=== PATIENT | female | born 1955 | race Caucasian/White ===

== ENCOUNTER → 2017-08-22 | Outpatient (CLI) | payer OTHER | END | disposition home or self-care (01) | LOC: LAB SHORT 15:57 → LAB EV 15:57 | DX: N76.4 Abscess of vulva (principal) | CPT/HCPCS: 87070; 87075; 87077; 87147; 87186; 87205 ==

== ENCOUNTER → 2018-04-08 | Outpatient (CLI) | payer OTHER ==
[2018-04-10 15:08] LABS: HPV 16 Negative (Negative); HPV 18 Negative (Negative); HPV OTHER HR TYPES Negative (Negative)
== END | disposition home or self-care (01) ==
LOC: LAB SHORT 11:44 → LAB 11:44
PROVIDERS: Obstetrics & Gynecology
DX: Z01.419 Encounter for gynecological examination (general) (routine) without abnormal findings (principal)
CPT/HCPCS: 87624; 87625; G0123

== ENCOUNTER → 2018-05-04 | Outpatient (CLI) | payer OTHER | END | disposition home or self-care (01) | LOC: LAB EV 17:23 → LAB SHORT 17:23 | DX: J06.9 Acute upper respiratory infection, unspecified (principal) | CPT/HCPCS: 87807 ==

== ENCOUNTER → 2019-03-08 | Outpatient (CLI) | payer OTHER | END | disposition home or self-care (01) | LOC: LAB SHORT 12:27 → PLD 12:27 | DX: L90.5 Scar conditions and fibrosis of skin (principal); M79.89 Other specified soft tissue disorders | CPT/HCPCS: 88305 ==

== ENCOUNTER → 2019-04-28 | Outpatient (CLI) | payer OTHER | END | disposition home or self-care (01) | LOC: PLD 08:23 → LAB SHORT 08:23 | DX: N95.0 Postmenopausal bleeding (principal) | CPT/HCPCS: 88305 ==

== ENCOUNTER → 2019-05-06 | Outpatient (CLI) | payer OTHER ==
[2019-05-10 14:06] LABS: HPV 16 Negative (Negative); HPV 18 Negative (Negative); HPV OTHER HR TYPES Negative (Negative)
== END | disposition home or self-care (01) ==
LOC: LAB 10:40 → LAB SHORT 10:40
PROVIDERS: Obstetrics & Gynecology
DX: Z01.419 Encounter for gynecological examination (general) (routine) without abnormal findings (principal)
CPT/HCPCS: 87624; G0123

== ENCOUNTER 2020-09-29 09:59 | Day surgery (SDC) | payer MEDICARE ==
[~2020-09-29] VITALS: Ht 172.7 cm; Wt 84.1 kg
[~2020-09-29 09:59] MED LIST: ALBU90OI INH; ALLEGRA ALLERGY60 MG PO; AZELASTINE137 MCG/01; Budeprion Xl300 MG PO; DIAZ10 PO; FLUT1DIS5 INH; Flonase 0.05% N16 GM; LAMO25 PO; SPIR25 PO; THYROID120 MG PO; THYROID60 MG PO
== END 2020-09-29 11:59 | disposition home or self-care (01) ==
LOC: ORSCSDS 09:59
PROVIDERS: Internal Medicine Gastroenterology
PROC: 0DBB8ZX Excision of Ileum, Via Natural or Artificial Opening Endoscopic, Diagnostic (ICD-10-PCS; principal; 2020-09-29 11:15)
PROC: 0DB98ZX Excision of Duodenum, Via Natural or Artificial Opening Endoscopic, Diagnostic (ICD-10-PCS; principal; 2020-09-29 11:15)
PROC: 0DB68ZX Excision of Stomach, Via Natural or Artificial Opening Endoscopic, Diagnostic (ICD-10-PCS; principal; 2020-09-29 11:15)
DX: R11.2 Nausea with vomiting, unspecified (principal); Z12.11 Encounter for screening for malignant neoplasm of colon; K29.70 Gastritis, unspecified, without bleeding; K44.9 Diaphragmatic hernia without obstruction or gangrene; K64.8 Other hemorrhoids; J45.909 Unspecified asthma, uncomplicated; K57.30 Diverticulosis of large intestine without perforation or abscess without bleeding; Z79.899 Other long term (current) drug therapy
CPT/HCPCS: 88305; 88342; J2704; J7120

== ENCOUNTER → 2021-06-28 | Outpatient (CLI) | payer MEDICARE ==
[2021-06-29 15:12] LABS: HPV 16 Negative (Negative); HPV 18 Negative (Negative); HPV OTHER HR TYPES Negative (Negative)
== END ==
LOC: LAB 10:30 → LAB SHORT 10:30
PROVIDERS: Family Medicine
DX: Z01.419 Encounter for gynecological examination (general) (routine) without abnormal findings (principal)
CPT/HCPCS: 87624; G0123

== ENCOUNTER → 2022-09-04 | Outpatient (CLI) | payer MEDICARE | END | disposition home or self-care (01) | LOC: LAB 11:45 → LAB SHORT 11:45 → EDSTATUS 09-02 10:25 → LAB FUT 09-02 10:25 | PROVIDERS: Internal Medicine | DX: R79.89 Other specified abnormal findings of blood chemistry (principal) | CPT/HCPCS: 81050 ==

== ENCOUNTER 2024-12-18 08:53 | Observation (INO) | payer OTHER, MEDICARE ==
[~2024-12-18] VITALS: Ht 172.7 cm; Wt 89.6 kg
[~2024-12-18 08:53] MED LIST changes: +ATOR10; +Aspir 8181 MG PO; +LAMO25; +Lisinopril2.5 MG PO; +PRED20; +TRELEGY ELLIPT1 EACH; +VITAMIN D325 MC3; +ZYRTEC10 M2
[2024-12-18 11:16] LABS: BASOPHILS ABSOLUTE AUTO 0.04 K/mm3 (0.00-0.23); BASOPHILS PERCENT AUTO 0 % (0-2); EOSINOPHILS ABSOLUTE AUTO 0.08 K/mm3 (0.00-0.68); EOSINOPHILS PERCENT AUTO 1 % (0-6); Hematocrit 46.3 % (33.0-51.0); Hemoglobin 14.9 g/dL (11.5-16.0); IMMATURE GRAN ABSOLUTE AUTO 0.04 K/mm3 (0.00-0.10); IMMATURE GRAN PERCENT AUTO 0 % (0-1); LYMPHOCYTES ABSOLUTE AUTO 1.85 K/mm3 (0.84-5.20); LYMPHOCYTES PERCENT AUTO 15 % (21-46); MONOCYTES ABSOLUTE AUTO 0.77 K/mm3 (0.16-1.47); MONOCYTES PERCENT AUTO 6 % (4-13); Mean Corpuscular HGB 26.5 pg (26.0-34.0); Mean Corpuscular HGB Conc 32.2 g/dL (31.5-36.5); Mean Corpuscular Volume 82 fL (80-100); Mean Platelet Volume 10.9 fL (9.1-12.4); NEUTROPHILS ABSOLUTE AUTO 9.36 K/mm3 (1.96-9.15); NEUTROPHILS PERCENT AUTO 77 % (41-73); Platelet Count 253 K/mm3 (150-400); RDW Coefficient Variation 17.1 % (11.7-14.2); RDW Standard Deviation 50.7 fL (35.1-46.3); Red Blood Cell Count 5.62 M/mm3 (3.80-5.20); White Blood Cell Count 12.14 K/mm3 (4.00-11.30)
[2024-12-18 11:34] LABS: Albumin, Blood 3.4 g/dL (3.4-5.0); Albumin/Globulin Ratio 0.9 (0.8-1.8); Bilirubin, Total 0.6 mg/dL (0.1-1.0); Bun/Creatinine Ratio 13.7 (12.0-20.0); Creatinine, Blood 1.02 mg/dL (0.40-1.00); Globulin, Blood 3.8 g/dL (2.2-4.0); Potassium, Blood 3.9 mmol/L (3.5-5.5); Total Protein, Blood 7.2 g/dL (6.4-8.2)
[2024-12-18] MEDS ORDERED: Cephalexin Monohydrate 500 MG Cap PO ONE (11:40)
[2024-12-18] MEDS ORDERED: Diphth,Pertuss(Acell),Tet Vac 0.5 ML VIAL IM ONE (11:40)
[2024-12-18] MEDS ORDERED: CEPH500 PO (11:41)
[2024-12-18 12:02] LABS: Adenovirus F 40/41 Not Detected (NOT DETECT); Astrovirus Not Detected (NOT DETECT); Campylobacter Sp Not Detected (NOT DETECT); Cryptosporidium Not Detected (NOT DETECT); Cyclospora Cayetanensis Not Detected (NOT DETECT); E. Coli O157 Not Detected (NOT DETECT); Entamoeba Histolytica Not Detected (NOT DETECT); Enteroaggregative E. coli-EAEC Not Detected (NOT DETECT); Enteropathogenic E. coli-EPEC Not Detected (NOT DETECT); Enterotoxigenic E. coli-ETEC Not Detected (NOT DETECT); Giardia Lamblia Not Detected (NOT DETECT); Norovirus GI/GII Not Detected (NOT DETECT); Plesiomonas Shigelloides Not Detected (NOT DETECT); Rotavirus A Not Detected (NOT DETECT); Salmonella Sp Not Detected (NOT DETECT); Sapovirus Not Detected (NOT DETECT); Shiga Toxin-prod E. coli-STEC Not Detected (NOT DETECT); Shigella/Enteroin E. coli-EIEC Not Detected (NOT DETECT); Vibrio Cholerae Not Detected (NOT DETECT); Vibrio Sp Not Detected (NOT DETECT); Yersinia Enterocolitica Not Detected (NOT DETECT)
[2024-12-18] MEDS ORDERED: AMOCLA875 PO (13:03)
[2024-12-18] MEDS ORDERED: MetroNIDAZOLE 500MG/NS 100 ml 100 ML IV ONE (13:30)
[2024-12-18] MEDS ORDERED: CefTRIAXone Sodium 1,000 MG in NS 100 ML IV ONE (13:30)
[2024-12-18] MEDS ORDERED: NS 1,000 ML IV SCH ×2 (13:30→13:45)
[2024-12-18] MEDS ORDERED: Magnesium Hydroxide Conc 10 ML UDC PO PRN (13:45)
[2024-12-18] MEDS ORDERED: TraZODone HCl 50 MG Tab PO PRN (13:45)
[2024-12-18] MEDS ORDERED: Ondansetron 4 MG TAB PO PRN (13:45)
[2024-12-18] MEDS ORDERED: Bisacodyl 10 MG Supp PR PRN (13:45)
[2024-12-18 13:50] LABS: Hematocrit 44.5 % (33.0-51.0); Hemoglobin 14.1 g/dL (11.5-16.0)
[2024-12-18] MEDS ORDERED: ARMOUR THYROID PO (14:08)
[2024-12-18] MEDS ORDERED: ROSUVASTATIN CA10 MG PO (14:09)
[2024-12-18] MEDS ORDERED: TRELEGY ELLIPT1 EAC1 INH (14:10)
[2024-12-18] MEDS ORDERED: HydrALAZINE HCl 20 MG / ML 1ML Vial IV PRN (14:15)
[2024-12-18] MEDS ORDERED: DiphenhydrAMINE HCl 50 MG/ML 1ML Vial IV PRN (14:20)
[2024-12-18] MEDS ORDERED: Mometasone/Formoterol MDI 200/5 mcg 13 GM INH SCH (14:25)
[2024-12-18] MEDS ORDERED: Losartan Potassium 50 MG Tab PO SCH (15:00)
[2024-12-18] MEDS ORDERED: Pantoprazole Sodium 40 MG Injection IV SCH (16:30)
[2024-12-18 17:09] VITALS: BP 147/76
[2024-12-18] MEDS ORDERED: ATOR20 PO (17:24)
[2024-12-18 19:06] VITALS: BP 124/75
[2024-12-18] MEDS ORDERED: MetroNIDAZOLE 500MG/NS 100 ml 100 ML IV SCH (20:00)
[2024-12-18] MEDS ORDERED: buPROPion HCL 150 MG TAB.SR.12H PO SCH (21:00)
[2024-12-18] MEDS ORDERED: Lactobacil 2-S.Thermo-Bifido 1 1 Cap PO SCH (21:00)
[2024-12-18] MEDS ORDERED: TraMADol HCl 50 MG Tab PO PRN (23:10)
[2024-12-19 00:36] VITALS: BP 124/71
[2024-12-19 04:44] VITALS: BP 109/63
[2024-12-19 05:44] LABS: BASOPHILS ABSOLUTE AUTO 0.02 K/mm3 (0.00-0.23); BASOPHILS PERCENT AUTO 0 % (0-2); EOSINOPHILS ABSOLUTE AUTO 0.18 K/mm3 (0.00-0.68); EOSINOPHILS PERCENT AUTO 2 % (0-6); Hematocrit 39.5 % (33.0-51.0); Hemoglobin 12.7 g/dL (11.5-16.0); IMMATURE GRAN ABSOLUTE AUTO 0.03 K/mm3 (0.00-0.10); IMMATURE GRAN PERCENT AUTO 0 % (0-1); LYMPHOCYTES ABSOLUTE AUTO 1.65 K/mm3 (0.84-5.20); LYMPHOCYTES PERCENT AUTO 19 % (21-46); MONOCYTES ABSOLUTE AUTO 0.66 K/mm3 (0.16-1.47); MONOCYTES PERCENT AUTO 7 % (4-13); Mean Corpuscular HGB 26.6 pg (26.0-34.0); Mean Corpuscular HGB Conc 32.2 g/dL (31.5-36.5); Mean Corpuscular Volume 83 fL (80-100); Mean Platelet Volume 11.4 fL (9.1-12.4); NEUTROPHILS ABSOLUTE AUTO 6.33 K/mm3 (1.96-9.15); NEUTROPHILS PERCENT AUTO 72 % (41-73); Platelet Count 203 K/mm3 (150-400); RDW Coefficient Variation 17.4 % (11.7-14.2); RDW Standard Deviation 52.5 fL (35.1-46.3); Red Blood Cell Count 4.77 M/mm3 (3.80-5.20); White Blood Cell Count 8.87 K/mm3 (4.00-11.30)
[2024-12-19] MEDS ORDERED: Thyroid 60 MG Tab PO SCH (06:00)
--- NOTE | 2024-12-19 06:04 | NUR ---
PESTICIDE CONTROL INSPECTOR SUMMARY: PT ADMITTED FOR RECTAL BLEEDING COLITIS AND SPIDER BITE TO L FOREARM. PT A&O X4. MAKES NEEDS KNONW. INDEPENDENT WITH CARES IN ROOM. IV FLUIDS INFUSING ORDERED. NO ADVERSE EFFECTS TO IV FLAGYL. PT C/O /10 LLQ ABD PAIN. NEW ORDER OBTAINED FOR TRAMADOL 50MG 1 TAB PO Q6H PRN PAIN. MEDICATED X1 WITH TRAMADOL; EFFECTIVE. PT DENIES RECTAL BLEEDING SINCE APPROX 0100. IV BENADRYL EFFECTIVE FOR SPIDER BITE. PT CONTINUES TO ICE PRN FOR ITCHING WELL. CLEAR LIQUID DIET TOLERATED. CALL LIGHT IN REACH. BED IN LOWEST POSITION. CARES ONGOING ORDERED.
[2024-12-19 06:15] LABS: Albumin, Blood 2.8 g/dL (3.4-5.0); Albumin/Globulin Ratio 0.9 (0.8-1.8); Bilirubin, Total 0.4 mg/dL (0.1-1.0); Bun/Creatinine Ratio 9.4 (12.0-20.0); Calcium, Blood 8.3 mg/dL (8.5-10.1); Creatinine, Blood 0.96 mg/dL (0.40-1.00); Magnesium, Blood 2.1 mg/dL (1.6-2.4); Potassium, Blood 3.4 mmol/L (3.5-5.5); Total Protein, Blood 5.8 g/dL (6.4-8.2)
[2024-12-19 07:29] VITALS: BP 111/66
[2024-12-19] MEDS ORDERED: CefTRIAXone Sodium 2,000 MG in NS 100 ML IV SCH (09:00)
[2024-12-19] MEDS ORDERED: LamoTRIgine 25 MG Tab PO SCH ×2 (09:00)
[2024-12-19 11:17] VITALS: BP 97/62
[2024-12-19] MEDS ORDERED: BENADRYL25 MG PO (14:25)
[2024-12-19] MEDS ORDERED: LEVO750 PO (14:26)
[2024-12-19 15:23] VITALS: BP 101/53
--- NOTE | 2024-12-19 16:22 | NUR ---
DISCHARGE PAPERWORK REVIEWED WITH PATIENT. ADVISED TO FOLLOW A BRAT DIET, AND CONTINUE TAKING A STOOL SOFTENER UNTIL SHE PASSES A BM. REVIEWED HOME MEDICATIONS. GAVE RETURN TO WORK NOTE ON 12/23 WRITTEN BY THE PROVIDER. REMOVED IV WITHOUT COMPLICATION. AND PATIENT LEFT 1605.
== END 2024-12-19 16:04 | disposition home or self-care (01) ==
LOC: ER 08:53 → ERHOLD 08:54 → MEDS 16:59
PROVIDERS: Student in an Organized Health Care Education/Training Program; ADMIT Hospitalist
DX: K52.9 Noninfective gastroenteritis and colitis, unspecified (principal); T63.311A Toxic effect of venom of black widow spider, accidental (unintentional), initial encounter; L03.114 Cellulitis of left upper limb; I10 Essential (primary) hypertension; E78.5 Hyperlipidemia, unspecified; E03.9 Hypothyroidism, unspecified; J98.4 Other disorders of lung; K57.30 Diverticulosis of large intestine without perforation or abscess without bleeding; Z79.899 Other long term (current) drug therapy; Z88.8 Allergy status to other drugs, medicaments and biological substances
CPT/HCPCS: 36415; 74177; 80053; 83690; 83735; 85014; 85018; 85025; 87507; 90715; 94640; 94664; 94760; A9270; J0360; J0696; J1200; J2470; J7030; Q9967

== ENCOUNTER 2025-04-04 11:10 | Observation (INO) | payer MEDICARE ==
[2025-04-04] VITALS (16 sets, daily range): BP systolic 102–130; BP diastolic 67–86
[~2025-04-04] VITALS: Ht 172.7 cm; Wt 90.3 kg
[~2025-04-04 11:10] MED LIST changes: +AMOCLA875 PO; +ARMOUR THYROID PO; +ATOR20 PO; +BENADRYL25 MG PO; +CEPH500 PO; +LEVO750 PO; +ROSUVASTATIN CA10 MG PO; +TRELEGY ELLIPT1 EAC1 INH
[2025-04-04 11:44] LABS: BASOPHILS ABSOLUTE AUTO 0.05 K/mm3 (0.00-0.23); BASOPHILS PERCENT AUTO 1 % (0-2); EOSINOPHILS ABSOLUTE AUTO 0.34 K/mm3 (0.00-0.68); EOSINOPHILS PERCENT AUTO 5 % (0-6); Hematocrit 39.8 % (33.0-51.0); Hemoglobin 13.0 g/dL (11.5-16.0); IMMATURE GRAN ABSOLUTE AUTO 0.02 K/mm3 (0.00-0.10); IMMATURE GRAN PERCENT AUTO 0 % (0-1); LYMPHOCYTES ABSOLUTE AUTO 1.21 K/mm3 (0.84-5.20); LYMPHOCYTES PERCENT AUTO 17 % (21-46); MONOCYTES ABSOLUTE AUTO 0.50 K/mm3 (0.16-1.47); MONOCYTES PERCENT AUTO 7 % (4-13); Mean Corpuscular HGB Conc 32.7 g/dL (31.5-36.5); Mean Corpuscular Volume 84 fL (80-100); NEUTROPHILS ABSOLUTE AUTO 4.93 K/mm3 (1.96-9.15); NEUTROPHILS PERCENT AUTO 70 % (41-73); NRBC ABSOLUTE 0.00 K/mm3 (0.00-0.02); NRBC Auto 0.0 /100 WBC (0.0-0.2); Platelet Count 342 K/mm3 (150-400); RDW Coefficient Variation 15.0 % (11.7-14.2); RDW Standard Deviation 46.2 fL (35.1-46.3)
[2025-04-04 12:19] LABS: Alanine Aminotransfer (ALT/SGP 23.0 U/L (12-78); Albumin, Blood 3.0 g/dL (3.4-5.0); Albumin/Globulin Ratio 0.8 (0.8-1.8); Anion Gap 9.0 mmol/L (3-11); Aspartate Aminotrans (AST/SGOT 27.0 U/L (12-37); Bilirubin, Total 0.5 mg/dL (0.1-1.0); Blood Urea Nitrogen 14.0 mg/dL (8-24); CO2, Blood 25.0 mmol/L (21-32); Calcium, Blood 8.6 mg/dL (8.5-10.1); Chloride, Blood 108.0 mmol/L (98-108); Creatinine, Blood 1.15 mg/dL (0.40-1.00); Globulin, Blood 3.7 g/dL (2.2-4.0); Glucose, Blood 150.0 mg/dL (70-99); Potassium, Blood 3.8 mmol/L (3.5-5.5); Sodium, Blood 138.0 mmol/L (136-145); Total Protein, Blood 6.7 g/dL (6.4-8.2)
[2025-04-04 14:23] LABS: Anti-Xa UFH, PHA Monitoring >1.50 IU/mL; Prothrombin Time Results 12.0 Sec (9.7-11.5)
[2025-04-04] MEDS ORDERED: Heparin Sodium,Porcine/0.5 NS 500 ML IV SCH (14:25)
[2025-04-04] MEDS ORDERED: Heparin Sodium 5000 Units/ML 1ML MDV IV ONE (14:25)
[2025-04-04] MEDS ORDERED: Prochlorperazine Edisylate 10 mg Vial IV PRN (15:05)
[2025-04-04] MEDS ORDERED: Formoterol/Mometasone MDI 5/100 mcg 13 GM INH SCH (15:10)
[2025-04-04] MEDS ORDERED: NS 1,000 ML IV ONE ×3 (15:56→17:43)
[2025-04-04] MEDS ORDERED: Heparin Sodium 1000 Units/ML 10ML MDV ONE ×4 (15:56→18:00)
[2025-04-04] MEDS ORDERED: Midazolam HCl 1MG / ML 2ML Vial ONE ×2 (16:23→16:57)
[2025-04-04] MEDS ORDERED: FentaNYL Citrate 50 MCG/ML 2 ML Injection ONE ×2 (16:23→17:28)
[2025-04-04] MEDS ORDERED: ELIQUIS5 M2 PO (19:32)
[2025-04-04] MEDS ORDERED: Albuterol 2.5 MG/3 ML VIAL ONE (20:35)
--- NOTE | 2025-04-04 21:35 | NUR ---
ARRIVAL TO ICU: PT ARRIVED TO ICU BED 3 FROM [facility] AT 1919. PT TRANSPORTED BY BED. ALERT AND ORIENTED, FOLLOWS DIRECTION. ANXIOUS AT TIMES. PT ON RA WITH SPO2 90-99%. DENIES SOB, LUNGS CLEAR. MANAGER POLICY IN PLACE, SR WITH HR 90'S. SBP 100-120'S. DENIES CP. PT HAS BILATERAL GROIN SITES WITH CLOSURE DEVICES AND TEGADERM IN PLACE. PT HAD A COUGHING SPELL AND DEVELOPED A HEMATOMA IN RIGHT GROIN. HELD MANUAL PRESSURE FOR 15 MINUTES. SLIGHT BRUISING NOTED, BUT SOFT TO TOUCH AND NO NEW OOZING NOTED. LEFT GROIN HAS MINIAL OOZING BUT IS SOFT TO TOUCH. LEFT TIBIAL HAS PRESSURE DRESSING WITH COBAN ON ARRIVAL FROM [employer] [employer]. LEFT LOWER LEG HAS EDEMA NOTED. PULSES PALPABLE BILATERALLY. PUREWICK IN PLACE WHILE FLAT LYING. PIV TO LAC SALINE LOCKED CURRENTLY WITH PLANS TO RESTART HEPARIN GTT PER DR. BALDERAS ONCE ORDER IN FROM PHARMACY. PT HAD ONE EPISODE OF EMESIS AFTER EATING R/T COUGHING SPELL. PT DENIES NAUSEA CURRENTLY. BED LOCKED, CALL LIGHT IN REACH.
[2025-04-04] MEDS ORDERED: Dose Adjust by Pharmacy XX STA (23:39)
[2025-04-05] VITALS (40 sets, daily range): BP systolic 75–134; BP diastolic 48–94
[2025-04-05] MEDS ORDERED: HYDROcodone 5-APAP 325 TAB PO PRN (00:50)
[2025-04-05 03:56] LABS: BASOPHILS ABSOLUTE AUTO 0.04 K/mm3 (0.00-0.23); BASOPHILS PERCENT AUTO 0 % (0-2); EOSINOPHILS ABSOLUTE AUTO 0.09 K/mm3 (0.00-0.68); EOSINOPHILS PERCENT AUTO 1 % (0-6); Hematocrit 32.9 % (33.0-51.0); Hemoglobin 10.7 g/dL (11.5-16.0); IMMATURE GRAN ABSOLUTE AUTO 0.03 K/mm3 (0.00-0.10); IMMATURE GRAN PERCENT AUTO 0 % (0-1); LYMPHOCYTES ABSOLUTE AUTO 0.99 K/mm3 (0.84-5.20); LYMPHOCYTES PERCENT AUTO 10 % (21-46); MONOCYTES ABSOLUTE AUTO 0.56 K/mm3 (0.16-1.47); MONOCYTES PERCENT AUTO 6 % (4-13); Mean Corpuscular HGB Conc 32.5 g/dL (31.5-36.5); Mean Corpuscular Volume 84 fL (80-100); NEUTROPHILS ABSOLUTE AUTO 8.01 K/mm3 (1.96-9.15); NEUTROPHILS PERCENT AUTO 82 % (41-73); NRBC ABSOLUTE 0.00 K/mm3 (0.00-0.02); NRBC Auto 0.0 /100 WBC (0.0-0.2); Platelet Count 323 K/mm3 (150-400); RDW Coefficient Variation 15.3 % (11.7-14.2); RDW Standard Deviation 47.1 fL (35.1-46.3)
[2025-04-05] MEDS ORDERED: Albuterol 2.5 MG/3 ML VIAL INH ONE ×2 (04:05→04:35)
[2025-04-05 04:15] LABS: Anion Gap 11.0 mmol/L (3-11); Blood Urea Nitrogen 13.0 mg/dL (8-24); CO2, Blood 23.0 mmol/L (21-32); Calcium, Blood 8.2 mg/dL (8.5-10.1); Chloride, Blood 108.0 mmol/L (98-108); Creatinine, Blood 1.05 mg/dL (0.40-1.00); Glucose, Blood 124.0 mg/dL (70-99); Potassium, Blood 4.7 mmol/L (3.5-5.5); Sodium, Blood 137.0 mmol/L (136-145)
--- NOTE | 2025-04-05 06:04 | NUR ---
SHIFT SUMMARY: PT REMAINED ALERT AND ORIENTED T/O THE NIGHT. ABLE TO REST OFF AND ON. C/O PAIN IN LOWER BACK AT TIMES AND PAIN RIGHT GROIN/LEFT TIBIAL SITE. ORDER OBTAINED FOR PAIN MEDICATION, ADMINISTERED PER EMAR WITH RELIEF. BRUISE NOTED TO RIGHT GROIN WITH SLIGHT OOZING. NO HEMATOMA. LEFT GROIN SITE OOZING, NO HEMATOMA OR BRUISING NOTED. CLOSURE DEVICES REMAIN INTACT BILATERALLY WITH TEGADERMS INTACT. PRESSURE DRESSING TO LEFT POSTERIOR TIBIAL INTACT. EDEMA NOTED IN LEFT LEG, HAS NOT WORSENED THIS SHIFT. REMAINS ON RA WITH SPO2 MID 90'S. DENIES SOB. HEPARIN GTT AT 12 UNITS/KG/HR. PIV TO LAC INTACT. REMAINS SR WITH HR 90'S. SBP 90-120'S. DENIES CP. STRAIGHT CATH THIS SHIFT WITH [address] CURRENTLY. TOLERATING PO WITH NO MORE EMESIS SINCE EARLIER THIS SHIFT. UP IN BED AT 20 DEGREES CURRENTLY. BED LOCKED, CALL LIGHT IN REACH.
[2025-04-05] MEDS ORDERED: Albuterol 2.5 MG/3 ML VIAL ONE (07:26)
[2025-04-05] MEDS ORDERED: Albuterol 2.5 MG/3 ML VIAL INH PRN (07:30)
[2025-04-05] MEDS ORDERED: Dose Adjust by Pharmacy XX STA (07:50)
[2025-04-05] MEDS ORDERED: FEXOFENADINE 180 MG TAB PO SCH (15:10)
--- NOTE | 2025-04-05 17:39 | NUR ---
SHIFT SUMMARY... PATIENT A&0X4 AND ABLE TO MAKE NEEDS KNOWN. SINUS/SINUS TACH IN THE 90'S-110'S. BP STABLE WITH MAPS >65. ACCESS SITES TO THE L/R GROIN. BRUSING TO THE RIGHT HAS GROWN APPROX A QUARTER INCH IN DIAMETER. DR. BALDERAS AWARE, PER PROVIDER VENOUS OOZING TO BE EXPECTED. CHARGE NURSE ALSO AWARE. THIRD ACCESS SITE L POSTERIOR TIBIAL, NO BRUISING OR TENDERNESS NOTED BY PATIENT. PATIENT ON ROOM AIR WITH SPO2 >94%. L/S CLEAR THROUGHOUT. PATIENT UP AD FRANCIS TO TOILET WITH YELLOW URINE OUT. NO BM THIS SHIFT. 20G PIV TO LEFT AC. AT BEDISDE UPDATED ON PLAN OF CARE.
--- NOTE | 2025-04-05 22:31 | NUR ---
ASSUMPTION NOTE: PT TRANSFERRED AND THIS RN ASSUMED CARE AT 2200. PT A&OX4 CALM AND COOPERATIVE. BP STABLE. ST 90S-100S. SATTING 94% ON RA. DENIES CHEST PAIN/PRESSURE AND SOB AT THIS TIME. PT AMBULATED WITH 1 PERSON ASSIST FROM WHEELCHAIR TO BED. GROIN SITES CHECKED WITH HANDOFF NURSE. R SITE HAS BRUISING. PROVIDER AWARE. LLE SWELLING. +2 PULSES BILATERAL DORSALIS PEDIS. REGULAR DIET. DENIES PAIN AND N/V AT THIS TIME. CONTINUE WITH CURRENT PLAN OF CARE. BED IS LOW AND LOCKED AND CALL LIGHT WITHIN REACH
[2025-04-06 00:36] VITALS: BP 116/52
[2025-04-06 04:20] VITALS: BP 117/66
[2025-04-06 07:16] LABS: Hematocrit 27.3 % (33.0-51.0); Hemoglobin 8.9 g/dL (11.5-16.0)
--- NOTE | 2025-04-06 07:36 | NUR ---
SHIFT SUMMARY: PT A&OX4 CALM AND COOPERATIVE. BP STABLE. SR-ST 90S-100S. ST 110S-120S WITH EXERTION. MAINTAINING >90% ON RA. INCREASED LLE EDEMA. KARLI NOTIFIED AT 0640 AND ORDERED H&H. BRUISING AT RIGHT GROIN SITE. NO HEMATOMA NOTED. SBA TO BATHROOM. TOLERATING REGULAR DIET. BED IS LOW AND LOCKED. CALL LIGHT WITHIN REACH. SHIFT REPORT GIVEN TO DAY NURSE.
[2025-04-06 08:20] VITALS: BP 129/91
[2025-04-06] MEDS ORDERED: CLOP75 PO (11:09)
[2025-04-06] MEDS ORDERED: HYDR1TAB94 PO (11:10)
[2025-04-06 11:18] VITALS: BP 114/65
[2025-04-06] MEDS ORDERED: NS 1,000 ML IV ONE (12:30)
--- NOTE | 2025-04-06 12:31 | NUR ---
LENS BLOCKER CALLED THIS RN ABOUT THE PT'S HEART RATE SUSTAINING 140'S. LUANA NEWBY AND THIS RN WENT TO THE PT'S ROOM AND SHE WAS IN THE BATHROOM GETTING READY FOR DISHCARGE. PT ASYMPTOMATIC. THIS RN CALLED DR. MORALES ABUT PT'S TACHYCARDIA AND RESTING RATE OF 120'S ABOUT FIVE MINUTES AFTER SHORT BATHROOM ACTIVTY. DR. MORALES ORDERED 1L BOLUS OF FLUIDS AND THEN A CARDIAC AMBULATION TEST AFTER THE BOLUS. SEE NOTES FOR UPDATES.
--- NOTE | 2025-04-06 14:58 | NUR ---
DISCHARGE NOTE SEE PREVIOUS NOTE. PT AMBULATED IN [facility] WITH KEYONNA GALLEGOS. CONFIRMED PT IS SAFE TO GO HOME. PT DISCHARGED IN WHEELCHAIR WITH BELONGINGS AND DISCHARGE INFORMATION IN POSESSION. PTs WHEELCHAIR PUSHED BY [facility] PROGRAM RESIDENT W/ PRESENT TO DRIVE HER HOME. PT HAS FOLLOW UP APT. W/ PRIMARY SET UP.
== END 2025-04-06 15:00 | disposition home or self-care (01) ==
LOC: ER 11:10 → ICUE 11:11 → PCU 04-05 21:56
PROVIDERS: Emergency Medicine; Student in an Organized Health Care Education/Training Program; ADMIT Internal Medicine
DX: I82.402 Acute embolism and thrombosis of unspecified deep veins of left lower extremity (principal); I12.9 Hypertensive chronic kidney disease with stage 1 through stage 4 chronic kidney disease, or unspecified chronic kidney disease; N18.31 Chronic kidney disease, stage 3a; E78.5 Hyperlipidemia, unspecified; J44.89 Other specified chronic obstructive pulmonary disease; E03.9 Hypothyroidism, unspecified; F41.8 Other specified anxiety disorders; Z88.8 Allergy status to other drugs, medicaments and biological substances; Z79.01 Long term (current) use of anticoagulants; Z79.02 Long term (current) use of antithrombotics/antiplatelets; Z79.899 Other long term (current) drug therapy; Z98.890 Other specified postprocedural states
CPT/HCPCS: 36415; 51701; 71260; 76937; 80048; 80053; 83880; 84484; 85014; 85018; 85025; 85520; 85610; 85730; 93005; 93010; 94640; 94664; 94762; 96365-59; 96366; 96375; 99152; 99153; 99285-25; A9270; C1725; C1757; C1769; C1773; C1876; C1887; C1894; G0378; J0780; J1644; J2250; J3010; J7030; Q9967

== ENCOUNTER 2025-05-10 11:15 | Emergency (ER) | payer MEDICARE ==
[~2025-05-10] VITALS: Ht 172.7 cm; Wt 86.2 kg
[~2025-05-10 11:15] MED LIST changes: +CLOP75 PO; +ELIQUIS5 M2 PO; +HYDR1TAB94 PO
[2025-05-10 14:26] LABS: BASOPHILS ABSOLUTE AUTO 0.05 K/mm3 (0.00-0.23); BASOPHILS PERCENT AUTO 1 % (0-2); EOSINOPHILS ABSOLUTE AUTO 0.13 K/mm3 (0.00-0.68); EOSINOPHILS PERCENT AUTO 2 % (0-6); Hematocrit 40.2 % (33.0-51.0); Hemoglobin 12.9 g/dL (11.5-16.0); IMMATURE GRAN ABSOLUTE AUTO 0.01 K/mm3 (0.00-0.10); IMMATURE GRAN PERCENT AUTO 0 % (0-1); LYMPHOCYTES ABSOLUTE AUTO 1.40 K/mm3 (0.84-5.20); LYMPHOCYTES PERCENT AUTO 19 % (21-46); MONOCYTES ABSOLUTE AUTO 0.53 K/mm3 (0.16-1.47); MONOCYTES PERCENT AUTO 7 % (4-13); Mean Corpuscular HGB Conc 32.1 g/dL (31.5-36.5); Mean Corpuscular Volume 82 fL (80-100); NEUTROPHILS ABSOLUTE AUTO 5.37 K/mm3 (1.96-9.15); NEUTROPHILS PERCENT AUTO 72 % (41-73); NRBC ABSOLUTE 0.00 K/mm3 (0.00-0.02); NRBC Auto 0.0 /100 WBC (0.0-0.2); Platelet Count 304 K/mm3 (150-400); RDW Coefficient Variation 14.7 % (11.7-14.2); RDW Standard Deviation 44.2 fL (35.1-46.3)
[2025-05-10 14:55] LABS: Alanine Aminotransfer (ALT/SGP 30.0 U/L (12-78); Albumin, Blood 3.8 g/dL (3.4-5.0); Albumin/Globulin Ratio 1.0 (0.8-1.8); Anion Gap 8.0 mmol/L (3-11); Aspartate Aminotrans (AST/SGOT 19.0 U/L (12-37); Bilirubin, Total 0.3 mg/dL (0.1-1.0); Blood Urea Nitrogen 19.0 mg/dL (8-24); CO2, Blood 27.0 mmol/L (21-32); Calcium, Blood 9.1 mg/dL (8.5-10.1); Chloride, Blood 108.0 mmol/L (98-108); Creatinine, Blood 1.04 mg/dL (0.40-1.00); Globulin, Blood 3.7 g/dL (2.2-4.0); Glucose, Blood 95.0 mg/dL (70-99); Potassium, Blood 3.6 mmol/L (3.5-5.5); Sodium, Blood 139.0 mmol/L (136-145); Total Protein, Blood 7.5 g/dL (6.4-8.2)
[2025-05-10] MEDS ORDERED: Ketorolac Tromethamine 15mg Vial IV ONE (15:30)
[2025-05-10 15:42] LABS: Prothrombin Time Results 10.8 Sec (9.7-11.5)
[2025-05-10 16:00] VITALS: BP 167/98
[2025-05-10] MEDS ORDERED: Norco 5-325 Ta1 EACH PO (16:05)
== END 2025-05-10 16:16 | disposition home or self-care (01) ==
LOC: ER 11:15
PROVIDERS: Physician Assistant
DX: I82.412 Acute embolism and thrombosis of left femoral vein (principal); M25.562 Pain in left knee; I10 Essential (primary) hypertension; E03.9 Hypothyroidism, unspecified; Z86.718 Personal history of other venous thrombosis and embolism; Z95.828 Presence of other vascular implants and grafts; Z88.8 Allergy status to other drugs, medicaments and biological substances; Z91.018 Allergy to other foods; Z88.1 Allergy status to other antibiotic agents; Z79.890 Hormone replacement therapy; Z79.01 Long term (current) use of anticoagulants; Z79.02 Long term (current) use of antithrombotics/antiplatelets; Z79.51 Long term (current) use of inhaled steroids; Z79.899 Other long term (current) drug therapy; Z59.89 Other problems related to housing and economic circumstances
CPT/HCPCS: 72193; 73562-LT; 80053; 85025; 85610; 93971; 96374; 99284-25; J1885; Q9967